=== PATIENT | female | born 1925 | race Caucasian/White ===

== ENCOUNTER 2016-03-13 13:42 | Inpatient (IN) | payer OTHER ==
[~2016-03-13] VITALS: Ht 172.7 cm; Wt 76.7 kg
--- NOTE | ~2016-03-13 | D ---
[facility] [place] [address] DISCHARGE SUMMARY Name: ENOC WILSON Lisandra Room #: 405-P [facility] IN M.R.#: [id number] Admission: 03/13/16 Attend Phys: Lisandra Tello Discharge: 03/19/16 Date of : [birth year] Report #: [id number] THIS REPORT FOR: //name// CC: Adrian Conroy FINAL DIAGNOSES: 1. Metastatic breast cancer. 2. Left rib fractures. 3. Hypertension. HOSPITAL COURSE: The patient was admitted with pain. CT and evaluation revealed what appears to be bony metastasis, most likely from breast cancer. A biopsy was obtained. She was seen by Cardiology service who felt the Plavix could be stopped as her stents are well over a year old. Her pain was controlled with small doses of as needed hydrocodone. Ultimately, a pathology was still pending and the care plan will be developed by Dr. Durand as an outpatient. PHYSICAL EXAMINATION: GENERAL: On the day of discharge, she was awake and alert. VITAL SIGNS: Stable. LUNGS: Clear. HEART: Regular. ABDOMEN: Soft. EXTREMITIES: Showed no edema. DISPOSITION: She will be discharged to [facility] under the care of Dr. Conroy with diet and activity as tolerated, PT, OT. Continue medications lisinopril 20 mg a day, stop Plavix and hydrocodone 5 mg as needed for pain. Follow up with Dr. Durand in a week. Overall is a poor prognosis given likely diagnosis of metastatic breast cancer. <ELECTRONICALLY SIGNED> By: Edward Mak MD 03/19/16 1645 [id number] 1527 Edward Mak MD /nt
--- NOTE | ~2016-03-13 | HC ---
[facility] [place] [address] CONSULTATION Name: STEVEENOC Lisandra Room #: 405-P ADM IN M.R.#: [id number] Admission: 03/13/16 Attend Phys: Lisandra Tello Discharge: Date of : [birth year] Report #: [id number] THIS REPORT FOR: //name// CC: William Hooker MD [facility] Fidencio Lovelace MD HISTORY OF PRESENT ILLNESS: The patient is a very hard of hearing 89-year-old female who lives at [facility], who was admitted for left chest pain. Unfortunately, here in the hospital, a chest x-ray done yesterday was worrisome for some possible lung changes on a CT of the chest. There are lytic destructive lesions and pathologic fractures involving the left fifth and sixth ribs. Also lytic changes in seventh thoracic vertebra. There were also 2-3 right pulmonary nodules identified, suggesting pulmonary metastasis. There were also diffuse interstitial lung changes, acute or chronicity indeterminant. CT head revealed a skull base mass, but no definite intracranial lesions. Lab here included a CBC that was fairly unremarkable and a BMP is also unremarkable. Note that we do not have liver functions on this admission. Sed rate 40, coags to be drawn. The patient is very hard of hearing. It sounds like other than the chest pain, she has done very well, without any new bowel changes, arm or leg swelling or new lumps or bumps that she is aware of. I also had a chance a talk with her daughter who is a assistant program director, her name is Aimra Hood, and she was not aware of any specific illnesses lately. Of interest in talking with the patient's daughter, it sounded like there is a niece who had breast cancer and a genetic abnormality, that the niece's mother had breast cancer and . This is the patient's sister, so the patient's daughter is going to try to get hold of that genetic mutation test so we can check the current patient. 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 The recent right mastectomy from 10/03/2015 which revealed a 2.4 cm grade II tumor with 6 lymph nodes negative that was ER 94%, AR 0, Her/2 Romero 1+ and Ki-67 of 31%. Also, history of thyroidectomy, cholecystectomy, cardiac stents times 2, coronary artery disease, hypertension, rheumatic fever, meningioma, bilateral carpal tunnel release, right rotator cuff repair, hysterectomy, skin cancer and hyperlipidemia. FAMILY HISTORY: niece Kiera Romero. had breast cancer and tested positive for heterozygous CHEK2 mutation thought to be pathogenic. Kiera Romero.'s mother (Sharon?) wo being tested and may or may not have had cancer. Another sister [(I believe there is/was Enoc (bilat breast cancers), Sharon (daughter Kiera w CHEK2 assoc breast cancer), and Shanelle Tobias. (had breast cancer, tested for CHEK2 (only) and was negative for same mutation in CHEK2 that was + in Kiera)), there [address] [address] CONSULTATION Name: ENOC WILSON Room #: 405-P [facility] IN M.R.#: [id number] Admission: 03/13/16 Attend Phys: Lisandra Tello Discharge: Date of : [birth year] Report #: [id number] was also a male relative with prostate cancer that Amira think was in his 50s. SOCIAL HISTORY: The patient currently lives in [facility], moved here from [place] about 5 years ago, if they recall. Nonsmoker, nondrinker. MEDICATIONS: At this time, in the hospital currently include ropinirole 0.25 mg at bedtime; lisinopril 5 mg daily; levothyroxine 100 mcg daily; furosemide 20 mg daily; potassium 10 mEq daily; aspirin 81 mg daily; atenolol 25 mg daily; clopidogrel 75 mg daily, last given yesterday and will be placed on hold and hydrocodone p.r.n. PHYSICAL EXAMINATION: GENERAL: The patient appears her stated age. VITAL SIGNS: Height is 5 feet 8 inches, 172.7 cm and weight 169 pounds, which is 76.7 kilograms. Blood pressure 176/61, O2 sat 97, respirations 18, pulse 51 and temperature 98.3. HEENT: Face is symmetrical. The patient is very hard of hearing. LUNGS: Mostly clear. HEART: Regular rate. The patient does have some post-surgical changes on the right she says that is unchanged. No enlarged lymph nodes. ABDOMEN: Nontender, not obese. EXTREMITIES: Without clubbing or cyanosis. DISCUSSION: Discussed with the patient and then her daughter that I would like to do a CT abdomen and pelvis to see if there is any other notable primary lesion to suggest a primary cancer other than breast cancer and also bone scan. We will likely need a biopsy to determine if this is breast cancer if it is ER and AR positive. We will also do an MRI of the head to make sure there is not any brain mets that might be a deal changer. We will also look for weightbearing bone involvement and may need plain films. ASSESSMENT AND PLAN: 1. CT changes of the bones, worrisome for metastatic disease. We will check as above, bone scan, CT abdomen and pelvis, MRI head and arrange for biopsy. I have already talked with Dr. Leong and Dr. Doyle in interventional radiology. I think the patient would benefit if she is able to take anti-hormone therapy and also radiation therapy to bony mets to prevent pathologic fractures. 2. Personal history of breast cancer along with family history including genetic abnormality. The patient's daughter will obtain this information and pass along. addendum: niece as CHEK2 mutation, another 3. History of thyroidectomy. Continues thyroid replacement. 4. Hyperlipidemia. Will be back on pravastatin. 5. Coronary artery disease and stents. Hold Plavix. I asked Dr. Hooker if this was okay to do so. Note that [address] [address] CONSULTATION Name: ENOC WILSON Room #: 405-P [facility] IN ..#: [id number] Admission: 03/13/16 Attend Phys: Lisandra Tello Discharge: Date of : [birth year] Report #: [id number] interventional radiology is aware of Plavix. 6. History of probably restless legs. Continue ropinirole. We will follow with you. <ELECTRONICALLY SIGNED> By: Isreal Durand MD 03/16/16 0721 [id number] [id number] Isreal Durand MD /nt
--- NOTE | ~2016-03-13 | S ---
[facility] [place] [address] SURGICAL PATH RPT PROCEDURE Name: ENOC WILSON Room #: 405-P [facility] IN M.R.#: [id number] Admission: 03/13/16 Date of : [birth year] Discharge: 03/19/16 Report #: [id number] Path Case #: [id number] PATHOLOGY REPORT COLLECTION DATE: 03/16/2016 RECEIVED DATE: 03/19/2016 SUBMITTING PHYS: Dr. Fidencio Saalzar OTHER PHYS: Dr. Adrian Conroy SPECIMEN(S) RECEIVED: A.Right lytic bone lesion in the right innominate bone * * * * * * * * * * * * FINAL DIAGNOSIS: Bone, right lytic bone lesion in right innominate bone, needle core biopsy: - METASTATIC ADENOCARCINOMA. COMMENT: ER, MS and HER-2/lobo are ordered. The results of these will be reported in a separate scanned image to follow. Please note specimen represents a decalcified specimen and results are to be used with caution. Co-review: Dr. Cassidy Menjivar. The findings are discussed with Dr. Jaswant Durand at 1:10 p.m., on 03/20/16. (IUV:csd; d/t: 03/20/2016) PATHOLOGIST: Rosa Isela Jasso M.D. REPORT ELECTRONICALLY SIGNED BY: Rosa Isela Jasso M.D. DATE/TIME: 03/20/2016 15:46 * * * * * * * * * * * * GROSS PATHOLOGY: The specimen is received in formalin, labeled "Enoc Wilson biopsy" and additionally labeled "right lytic bone lesion in the right innominate bone." Received is a 1.2 x 0.6 x 0.3 cm aggregate of dark red blood coagulum, admixed with possible pieces of bone. The specimen is entirely submitted in cassette A1, following decalcification. (TTL; 03/19/2016) CLINICAL HISTORY: Generalized pain especially around L breast/back [address] [address] SURGICAL PATH RPT PROCEDURE Name: ENOC WILSON Room #: 405-[facility] IN .R.#: [id number] Admission: 03/13/16 Date of : [birth year] Discharge: 03/19/16 Report #: [id number] Path Case #: [id number] INITIAL CPT CODE(S): A; 07532, 52603, 90564(3) Professional services performed by [facility] at [address], [place] [address] Technical services performed by [facility] at [address] [place] [address], [facility] [address] [address]. PROCEDURE REPORT (Order Date: 03/21/2016 00:00) INTERPRETATION: Quantitative image analysis was performed on block A1. Please see SCANNED IMAGES under LABORATORY for scanned image of results. COMMENT: PATHOLOGIST: Jourdan Stanley M.D. REPORT ELECTRONICALLY SIGNED BY: Jourdan Stanley M.D. DATE/TIME: 03/27/2016 10:24 [facility] [address] [place] [address] PHONE: [phone] DIRECTOR: Ross Guaman M.D. * * * END OF REPORT * * *
--- NOTE | ~2016-03-13 | HC ---
[facility] [place] [address] CONSULTATION Name: ENOC WILSON Room #: 405-P [facility] IN ..#: [id number] Admission: 03/13/16 Attend Phys: Lisandra Tello Discharge: 03/19/16 Date of : [birth year] Report #: [id number] THIS REPORT FOR: //name// CC: Adrian Conroy CARDIOLOGY CONSULTATION HISTORY OF PRESENT ILLNESS: An 89-year-old female, known to myself. Admitted with left-sided breast pain and chest pain. Subsequently, found to have multiple lytic lesions involving her ribs and her cranium. Source of the primary cancer is not yet known. She has had stable coronary disease, a remote LAD stent in 2006 and then more recently 2 LAD stents were placed in January of 2015. She has been on baby aspirin and Plavix since. She also takes atenolol, lisinopril, Lasix 40, potassium, pravastatin 20 and Synthroid. She denies any chest pain or anginal complaints, some dyspnea and shortness of breath. She has been lost to followup with me since the stents were placed a little over a year ago. She had an abnormal nuclear test at that time that precipitated that visit to the catheterization lab and angina. There has been no recurrent angina. EKG has been sinus rhythm, sinus pearl with nonspecific changes. PAST MEDICAL HISTORY: Positive for coronary artery disease, hypertension, hypercholesterolemia, hypothyroidism, DJD, mild carotid disease, mastectomy of the left breast in the past, cholecystectomy and thyroidectomy, subtotal. ALLERGIES: FLOVENT. SOCIAL HISTORY: She is . She is accompanied by her daughter who is a manager post. No caffeine or alcohol use. No tobacco use. FAMILY HISTORY: Negative for premature coronary disease. PHYSICAL EXAMINATION: VITAL SIGNS: Blood pressure has been 150-170 over 60s and 70s. Pulse is 50s and regular. HEENT: Eyes reveal no xanthelasmas. Arcus senilis noted. Pharynx is clear. NECK: Shows preserved upstrokes, without JVD or bruits. LUNGS: Clear with slight prolonged expiratory phase. CARDIAC EXAMINATION: Regular rate and rhythm, S1, S2. There is a faint systolic murmur. ABDOMEN: Soft. No HSM or abdominal bruit. EXTREMITIES: Reveal trace of nonpitting edema. NEUROLOGIC: Nonfocal. SKIN: Warm and dry, without xanthoma or ulcer. MUSCULOSKELETAL: No gross joint deformity. Generalized arthritic changes are noted. I did not ambulate her. She is hard of hearing, but neurologically intact. [address] [address] CONSULTATION Name: ENOC WILSON Room #: [address] [place] [address] [place] ..#: [id number] Admission: 03/13/16 Attend Phys: Lisandra Tello Discharge: 03/19/16 Date of : [birth year] Report #: [id number] LABORATORY DATA: Sodium 145, potassium 4.1, creatinine 0.8 and calcium 9.9. H and H is 12.8 and 38.6, white count is 6.9. ASSESSMENT: 1. Coronary artery disease, stable with left anterior descending stents placed in January 2015. 2. Mild ischemic cardiomyopathy of 50% by history, stable. 3. Hypertension. 4. Hypercholesterolemia. 5. Hypothyroidism. 6. It looks like metastatic lytic bony lesions in the cranium and ribs. PLAN: Okay to proceed with workup, lung biopsy. May discontinue Plavix; no indication for this at this time. We would like to continue baby aspirin after this staging is completed. Cardiovascular status is stable. We will continue to follow with you. I have discussed this with the patient and her daughter. Thank you for asking us to assist in the care of this patient. <ELECTRONICALLY SIGNED> By: Diogenes Hooker MD, FACC 03/21/16 0936 1007 1031 Diogenes Hooker MD, FACC /nt
--- NOTE | ~2016-03-13 | H ---
[facility] [place] [address] HISTORY AND PHYSICAL Name: STEVEWAYNEH Lisandra Room #: 405-P [facility] IN M.R.#: [id number] Admission: 03/13/16 Attend Phys: Lisandra Tello Discharge: 03/19/16 Date of : [birth year] Report #: [id number] THIS REPORT FOR: //name// CC: Adrian Conroy DATE OF SERVICE: 03/13/2016 CHIEF COMPLAINT: Left chest pain. HISTORY OF PRESENT ILLNESS: The patient was admitted from the office with left chest pain. She is complaining feeling of weak and having pain around the left rib cage. She does have a history of breast cancer and underwent a right mastectomy and axillary node biopsy in 09/2015. There was concern for any new process. She was just hospitalized about 3 weeks ago with urinary tract infection and confusion. She medically stabilized from this and discharged home. She was readmitted again from the office yesterday. PAST MEDICAL HISTORY: Hypertension, hypothyroidism, coronary artery disease, history of rheumatic fever, history of meningioma, history of rotator cuff injury, right breast cancer, skin cancer. PAST SURGICAL HISTORY: She had thyroidectomy, cardiac stent, previous left mastectomy, recent right mastectomy, hysterectomy, carpal tunnel release. FAMILY HISTORY: Noncontributory. SOCIAL HISTORY: She lives at [facility]. No chronic alcohol or tobacco use. ALLERGIES: None. MEDICATIONS: Hydrocodone, aspirin 81 mg, Plavix 75 mg, Lasix 20 mg, Levoxyl 100 mcg, potassium 10 mEq, Requip 0.25 mg at bedtime, atenolol 25 mg. REVIEW OF SYSTEMS: She is complaining of pain along the left ribs. Otherwise, no headache, chest pain, shortness of breath, abdominal pain, nausea, vomiting, diarrhea, constipation, dysuria, or syncope. OBJECTIVE: VITAL SIGNS: Temperature 36.7, pulse 62, respirations 18, blood pressure 179/80, O2 sat 98% on room air. GENERAL: She is awake and alert, sitting up in bed. HEENT: She is hard of hearing. LUNGS: Clear. CARDIOVASCULAR: Regular. [facility] [address] [place] [address] HISTORY AND PHYSICAL Name: ENOC WILSON Room #: 405-P [facility] IN .R.#: [id number] Admission: 03/13/16 Attend Phys: Lisandra Tello Discharge: 03/19/16 Date of : 10/[birth year] Report #: [id number] ABDOMEN: Soft, normoactive bowel sounds. EXTREMITIES: No edema. CHEST: She has palpable tenderness along the left ribs. I do not palpate a mass or lymph nodes. ASSESSMENT: 1. Breast cancer. 2. Left chest wall pain. 3. Hypertension. 4. History of coronary artery disease. PLAN: I will ask for a CT scan of the chest. I will ask Dr. Lovelace to see in consultation. Home medications to continue. Early mobilization and activity. She is already on Plavix and aspirin. We will add SCDs for DVT prophylaxis. <ELECTRONICALLY SIGNED> By: Edward Mak MD 03/20/16 1301 0811 0834 Edward Mak MD /nt
[~2016-03-13 13:42] MED LIST: ASPIR 8181 MG PO; CEFTIN 250250 MG/52 PO; CITRATE OF MAG296 ML PO; IMDUR 30 MG TAB30 M1 PO; KLOR-CON 1010 MEQ PO; LASIX 40 MG TAB40 M2 PO; LEVOTHYROXINE 0.1 MG PO; NORCO 5-325 TA1 EACH PO; OCUVITE EYE +1 EACH PO; PLAVIX 75 MG TA75 M1 PO; PRAVACHOL20 MG PO; PRESERVISION L1 EACH PO; REQUIP 0.25 M0.25 M1 PO; SENOKOT-S1 TA1 PO; TENORMIN25 MG PO; TYLENOL325 MG PO; VITAMIN D 5050000 I1
[2016-03-13 14:45] VITALS: BP 201/112
[2016-03-13 18:35] LABS: ABSOLUTE NEUTROPHILS 4.6 thou/uL (1.4-8.2); BASOPHILS 0.7 % (0.0-2.0); EOSINOPHILS 1.6 % (0.0-3.0); HEMATOCRIT 38.6 % (37.0-47.0); HEMOGLOBIN 12.8 gm/dL (12.0-15.0); LYMPHOCYTES 25.1 % (24.0-44.0); MCH 28.6 pg (26.0-34.0); MCHC 33.1 % (28.0-37.0); MCV 86.5 fL (80.0-100.0); MONOCYTES 5.7 % (1.0-8.0); PLATELET COUNT 192 thou/uL (150-400); POLYS 66.9 % (36.0-66.0); RBC 4.46 mil/uL (4.20-5.00); RDW 15.4 % (10.5-14.5); WBC 6.9 thou/uL (4.0-11.0)
[2016-03-13 18:39] LABS: MANUAL DIFF NO
[2016-03-13 18:42] LABS: CALCIUM 9.9 mg/dL (8.5-10.1); CREATININE 0.8 mg/dL (0.6-1.3); POTASSIUM 4.1 mmol/L (3.5-5.1)
[2016-03-13 20:02] VITALS: BP 188/91
[2016-03-14 04:43] VITALS: BP 179/80
[2016-03-14 08:23] VITALS: BP 177/101
[2016-03-14 19:25] VITALS: BP 145/104
[2016-03-15 03:55] VITALS: BP 151/79
[2016-03-15 08:54] VITALS: BP 176/61
[2016-03-15 10:12] LABS: APTT 26.3 Seconds (24.5-32.8); INR 1.1; PROTIME 11.6 Seconds (9.3-11.4)
[2016-03-15 17:22] VITALS: BP 138/72
[2016-03-15 20:23] VITALS: BP 184/69
[2016-03-16] VITALS (7 sets, daily range): BP systolic 162–219; BP diastolic 45–110
[2016-03-17 03:20] VITALS: BP 154/71
[2016-03-17 05:53] LABS: BASOPHILS 0.5 % (0.0-2.0); EOSINOPHILS 0.3 % (0.0-3.0); HEMATOCRIT 36.4 % (37.0-47.0); HEMOGLOBIN 11.9 gm/dL (12.0-15.0); LYMPHOCYTES 14.4 % (24.0-44.0); MCH 28.7 pg (26.0-34.0); MCHC 32.6 % (28.0-37.0); MONOCYTES 5.7 % (1.0-8.0); PLATELET COUNT 209 thou/uL (150-400); POLYS 79.1 % (36.0-66.0); RBC 4.13 mil/uL (4.20-5.00); RDW 15.2 % (10.5-14.5); WBC 7.6 thou/uL (4.0-11.0)
[2016-03-17 06:04] LABS: CALCIUM 9.3 mg/dL (8.5-10.1); POTASSIUM 3.9 mmol/L (3.5-5.1)
[2016-03-17 06:12] LABS: MANUAL DIFF NO
[2016-03-17 08:00] VITALS: BP 154/67
[2016-03-17 16:28] VITALS: BP 127/54
[2016-03-17 19:35] VITALS: BP 125/51
[2016-03-18 08:00] VITALS: BP 147/56
[2016-03-18 17:45] VITALS: BP 134/59
[2016-03-18 20:00] VITALS: BP 140/64
[2016-03-19 08:00] VITALS: BP 148/74
[2016-03-19] MEDS ORDERED: HYDROCODON-ACE1 EAC7 PO (13:20)
[2016-03-19] MEDS ORDERED: LISINOPRIL20 MG PO (13:20)
== END 2016-03-19 16:09 | DRG 478 ==
LOC: 4N 13:42
PROVIDERS: Internal Medicine; Internal Medicine Hematology & Oncology; Radiology Diagnostic Radiology
PROC: 0QB23ZX Excision of Right Pelvic Bone, Percutaneous Approach, Diagnostic (ICD-10-PCS; principal; 2016-03-16)
DX: C79.51 Secondary malignant neoplasm of bone (principal); S22.32XA Fracture of one rib, left side, initial encounter for closed fracture; N39.0 Urinary tract infection, site not specified; C50.919 Malignant neoplasm of unspecified site of unspecified female breast; I25.10 Atherosclerotic heart disease of native coronary artery without angina pectoris; I10 Essential (primary) hypertension; G56.03 Carpal tunnel syndrome, bilateral upper limbs; E78.5 Hyperlipidemia, unspecified; E03.9 Hypothyroidism, unspecified; I25.5 Ischemic cardiomyopathy; E78.00 Pure hypercholesterolemia, unspecified; X58.XXXA Exposure to other specified factors, initial encounter; Y93.89 Activity, other specified; Y92.89 Other specified places as the place of occurrence of the external cause; Z85.828 Personal history of other malignant neoplasm of skin; Z80.3 Family history of malignant neoplasm of breast; Z95.5 Presence of coronary angioplasty implant and graft; Z88.8 Allergy status to other drugs, medicaments and biological substances; Z90.12 Acquired absence of left breast and nipple; Z90.49 Acquired absence of other specified parts of digestive tract; Z98.890 Other specified postprocedural states; Z79.82 Long term (current) use of aspirin; Z90.710 Acquired absence of both cervix and uterus; Z79.899 Other long term (current) drug therapy; Z79.02 Long term (current) use of antithrombotics/antiplatelets; Y99.8 Other external cause status
CPT/HCPCS: 10790

== ENCOUNTER 2016-07-21 23:08 | Inpatient (IN) | payer OTHER ==
[~2016-07-21] VITALS: Ht 172.7 cm; Wt 70.9 kg
--- NOTE | ~2016-07-21 | D ---
[facility] [place] [address] DISCHARGE SUMMARY Name: ENOC WILSON Room #: 407-P ADM IN M.R.#: [id number] Admission: 07/22/16 Attend Phys: Lisandra Tello Discharge: Date of : [birth year] Report #: [id number] THIS REPORT FOR: //name// CC: Adrian Conroy FINAL DIAGNOSIS: Metastatic breast cancer. HOSPITAL COURSE: The patient was admitted with left-sided chest pain. CT revealed what looks to be widespread bony metastases from her underlying known breast cancer. As noted by Dr. Conroy, this is in a palliative care stage as there is no further aggressive treatment. She is recommended hospice care. PHYSICAL EXAMINATION: GENERAL: On the day of discharge, she was sitting up in bed in no distress. CARDIOPULMONARY: Her lungs were clear with regular heart sounds. ABDOMEN: Soft, normoactive bowel sounds. EXTREMITIES: Showed no edema. DISPOSITION: She will return to [facility] with diet and activity as tolerated, referral to hospice, oxycodone 5 mg every 6 hours as needed for pain. <ELECTRONICALLY SIGNED> By: Edward Mak MD 07/24/16 0948 1259 1516 Edward Mak MD /nt
--- NOTE | ~2016-07-21 | H ---
[facility] [address] HISTORY AND PHYSICAL Name: ENOC WILSON Lisandra Room #: 407-P [facility] IN M.R.#: [id number] Admission: 07/22/16 Attend Phys: Lisandra Tello Discharge: 07/24/16 Date of : [birth year] Report #: [id number] THIS REPORT FOR: //name// CC: Adrian Conroy DATE OF SERVICE: 07/22/2016 An 89-year-old female with breast cancer. HISTORY OF PRESENT ILLNESS: This is a patient with increasing chest pain, thought to have probably a rib fracture even though, we were not able to prove that because of the increasing pain in her chest in a patient with known bony changes from metastatic breast cancer that is currently in palliative care treatment mode. PAST MEDICAL HISTORY: Noteworthy predominantly for the breast cancer. She has meningioma, nothing else really is pertinent this time. FAMILY HISTORY, SOCIAL HISTORY AND REVIEW OF SYSTEMS: Only pertinent for the fact that she is still living semi-independently and I suspect this is going to have to change. PHYSICAL EXAMINATION: Shows her lying in bed. She is sleeping. There is really no in her physical examination from previous. DIAGNOSIS: Metastatic breast cancer in its terminal phases. PLAN: Hospice care is needed. <ELECTRONICALLY SIGNED> By: Adrian Conroy MD 07/25/16 1244 0924 [facility] Adrian Conroy MD /nt
--- NOTE | ~2016-07-21 | EKG ---
[address] [address] ELECTROCARDIOGRAM REPORT Name: ENOC WILSON Room #: 407-P ADM IN M.R.#: [id number] Admission: 07/22/16 Attend Phys: Lisandra Tello Discharge: Date of : [birth year] Report #: [id number] THIS REPORT FOR: //name// [facility] ED Test Date: 2016-07-21 Test Time: 23:47:08 Pat Name: ENOC WILSON Department: Room: 407 Gender: F Engineering Document Control Clerk: shanna soriano : 1925 Requested By: Royer Marcial Order Number: [id number] MD: Mick Martin Measurements Intervals [place] Rate: 52 P: 2 TN: 190 QRS: 31 QRSD: 101 T: 18 QT: 480 QTc: 447 Interpretive Statements Sinus rhythm Compared to ECG 02/18/2016 21:13:25 Atrial premature complex(es) no longer present Electronically Signed On 07-23-2016 8:49:27 CDT by Mick Martin [email or web address] <ELECTRONICALLY SIGNED> By: Mick Martin MD 07/23/16 0849 [id number] 46 Mick Martin MD /TAMMY
[~2016-07-21 23:08] MED LIST changes: +HYDROCODON-ACE1 EAC7 PO; +LISINOPRIL20 MG PO
[2016-07-21 23:09] VITALS: BP 126/78
[2016-07-21 23:50] LABS: ABSOLUTE NEUTROPHILS 6.5 thou/uL (1.4-8.2); BASOPHILS 0.6 % (0.0-2.0); EOSINOPHILS 0.7 % (0.0-3.0); HEMATOCRIT 34.8 % (37.0-47.0); HEMOGLOBIN 11.7 gm/dL (12.0-15.0); LYMPHOCYTES 12.7 % (24.0-44.0); MCH 29.8 pg (26.0-34.0); MCHC 33.6 g/dL (28.0-37.0); MCV 88.6 fL (80.0-100.0); MONOCYTES 4.5 % (1.0-8.0); PLATELET COUNT 185 thou/uL (150-400); POLYS 81.5 % (36.0-66.0); RBC 3.93 mil/uL (4.20-5.00); RDW 15.3 % (10.5-14.5)
[2016-07-21 23:51] LABS: URINE BILIRUBIN NEGATIVE (Negative); URINE BLOOD NEGATIVE (Negative); URINE COLOR YELLOW; URINE GLUCOSE-RANDOM* NEGATIVE (Negative); URINE KETONES NEGATIVE (Negative); URINE LEUKOCYTES-REFLEX NEGATIVE (Negative); URINE PROTEIN (DIPSTICK) NEGATIVE (Negative)
[2016-07-21 23:55] LABS: ANION GAP 9 mmol/L (7-16); BUN 7 mg/dL (7-18); CALCIUM 10.1 mg/dL (8.5-10.1); CHLORIDE 101 mmol/L (98-107); CO2 28 mmol/L (21-32); CREATININE 0.9 mg/dL (0.6-1.0); GLUCOSE 127 mg/dL (74-106); MANUAL DIFF NO; POTASSIUM 3.5 mmol/L (3.5-5.1); SODIUM 138 mmol/L (136-145)
[2016-07-22 00:01] LABS: ALBUMIN 3.5 g/dL (3.4-5.0); ALKALINE PHOSPHATASE 263 U/L (46-116); SGOT 32 U/L (15-37); SGPT 9 U/L (30-65); TOTAL BILIRUBIN 0.7 mg/dL (<0.1-1.0); TOTAL PROTEIN 7.5 g/dL (6.4-8.2); TROPONIN-I < 0.04 ng/mL (<0.04-0.07)
[2016-07-22 07:55] VITALS: BP 124/57
[2016-07-22] MEDS ORDERED: OXYCONTIN10 M1 PO (12:51)
[2016-07-22] MEDS ORDERED: ANASTROZOLE1 MG PO (12:53)
[2016-07-22 16:00] VITALS: BP 164/62
[2016-07-23 03:37] VITALS: BP 127/51
[2016-07-23 08:28] VITALS: BP 175/79
[2016-07-23] MEDS ORDERED: OXYCODONE HCL 55 MG PO (12:46)
[2016-07-23 16:30] VITALS: BP 178/72
[2016-07-23 20:17] VITALS: BP 198/85
[2016-07-24 06:05] VITALS: BP 189/84
[2016-07-24 08:00] VITALS: BP 186/84
[2016-07-24] MEDS ORDERED: MSL20MG/ML PO (09:50)
[2016-07-24] MEDS ORDERED: FENTANYL PA25 MCG/HR TRANSDERM (09:50)
== END 2016-07-24 17:06 | DRG 598 ==
LOC: ER 23:08 → 4N 07-22 06:06 → EROBS 07-22 06:06 → 4N 07-22 07:29
PROVIDERS: Physician Assistant
DX: C50.919 Malignant neoplasm of unspecified site of unspecified female breast (principal); S22.32XA Fracture of one rib, left side, initial encounter for closed fracture; E89.0 Postprocedural hypothyroidism; I25.10 Atherosclerotic heart disease of native coronary artery without angina pectoris; I10 Essential (primary) hypertension; E78.5 Hyperlipidemia, unspecified; Z90.13 Acquired absence of bilateral breasts and nipples; Z90.49 Acquired absence of other specified parts of digestive tract; Z95.5 Presence of coronary angioplasty implant and graft; Z90.710 Acquired absence of both cervix and uterus; Z85.828 Personal history of other malignant neoplasm of skin; Z51.5 Encounter for palliative care
CPT/HCPCS: 10091

== ENCOUNTER 2016-08-08 10:05 | Emergency (ER) | payer OTHER ==
[~2016-08-08] VITALS: Ht 172.7 cm; Wt 64.4 kg
[~2016-08-08 10:05] MED LIST changes: +ANASTROZOLE1 MG PO; +FENTANYL PA25 MCG/HR TRANSDERM; +MSL20MG/ML PO; +OXYCODONE HCL 55 MG PO; +OXYCONTIN10 M1 PO
[2016-08-08] MEDS ORDERED: MIRALAX17 GM PO (10:21)
[2016-08-08] MEDS ORDERED: FENTANYL1 EAC3 TD (10:21)
[2016-08-08] MEDS ORDERED: COLACE100 MG PO (10:22)
== END 2016-08-08 13:22 | disposition home or self-care (01) ==
LOC: ER 10:05
DX: S42.291A Other displaced fracture of upper end of right humerus, initial encounter for closed fracture (principal); E89.0 Postprocedural hypothyroidism; I25.10 Atherosclerotic heart disease of native coronary artery without angina pectoris; I10 Essential (primary) hypertension; E78.00 Pure hypercholesterolemia, unspecified; F03.90 Unspecified dementia, unspecified severity, without behavioral disturbance, psychotic disturbance, mood disturbance, and anxiety; Z95.5 Presence of coronary angioplasty implant and graft; Z90.11 Acquired absence of right breast and nipple; Z90.710 Acquired absence of both cervix and uterus; Z90.12 Acquired absence of left breast and nipple; Z90.49 Acquired absence of other specified parts of digestive tract; Z85.828 Personal history of other malignant neoplasm of skin; Z98.890 Other specified postprocedural states; W06.XXXA Fall from bed, initial encounter; Y93.89 Activity, other specified; Y92.129 Unspecified place in nursing home as the place of occurrence of the external cause; Y99.8 Other external cause status